=== PATIENT | female | born 1945 | race Caucasian/White ===

== ENCOUNTER 2017-07-26 11:03 | Inpatient (IN) | payer OTHER ==
[2017-07-13 10:23] VITALS: BMI 33.0
--- NOTE | 2017-07-13 11:01 | PAT Medication Instructions ---
Service Date Jul 13, 2017. Current Home Medication List Albuterol Hfa (Ventolin Hfa), 2-4 PUFFS INH Q4H PRN for SOB/Wheezing Hydrochlorothiazide (Hctz), 25 MG PO Q3D Lamotrigine (Lamictal), 100 MG PO QAM Levothyroxine Sodium (Synthroid), 112 MCG PO QAM Nebivolol Hcl (Bystolic), 20 MG PO QAM Omeprazole (Prilosec), 20 MG PO QAM Valsartan (Diovan), 160 MG PO QAM Medication Instructions For Your Scheduled Surgery - Hold the following medications the morning of surgery: Valsartan (Diovan), 160 MG PO QAM Hydrochlorothiazide (Hctz), 25 MG PO Q3D - Take the following medications the morning of surgery with a sip of water: Nebivolol Hcl (Bystolic), 20 MG PO QAM Omeprazole (Prilosec), 20 MG PO QAM Levothyroxine Sodium (Synthroid), 112 MCG PO QAM Lamotrigine (Lamictal), 100 MG PO QAM Albuterol Hfa (Ventolin Hfa), 2-4 PUFFS INH Q4H PRN for SOB/Wheezing (if needed) - Take the following medications as scheduled the night before surgery: Albuterol Hfa (Ventolin Hfa), 2-4 PUFFS INH Q4H PRN for SOB/Wheezing (if needed) If you have any questions please call us at [phone] or [phone] or [phone]
[2017-07-13 11:41] LABS: BASO % 0.3 %; BASO ABS # 0.02 K/uL (0-0.2); COMPLETE YES; EOS % 4.6 %; IG% 0.3 %; LYMPH % 29.1 %; LYMPH ABS # 1.78 K/uL (1.2-3.4); MEAN CELL VOLUME 92.9 fL (80-100); MEAN CORPUSCULAR HEMOGLOBIN 32.3 pg (25-34); MEAN CORPUSCULAR HGB CONC 34.7 g/dl (32-36); MEAN PLATELET VOLUME 9.6 fL (7.4-10.4); MONO % 6.7 %; PLATELET COUNT 270 K/uL (130-400); RED BLOOD COUNT 4.09 M/uL (4.2-5.4); WHITE BLOOD COUNT 6.12 K/uL (4.8-10.8)
[2017-07-13 11:48] LABS: URINE APPEARANCE CLEAR (CLEAR); URINE BILIRUBIN NEG (NEG); URINE COLOR YELLOW; URINE EPITHELIAL CELL AUTO >30 /lpf (0-5); URINE NITRITE NEG (NEG); URINE SPECIFIC GRAVITY 1.019 (1.000-1.030); UROBILINOGEN NEG (NEG); ZZUR CULT IF INDIC CLEAN CATCH NO
[2017-07-13 11:50] LABS: INR 0.9 (0.9-1.1); PROTHROMBIN TIME (PATIENT) 10.1 SECONDS (9.0-12.0)
[2017-07-13 11:56] LABS: BUN/CREATININE RATIO 21.1 (10-20); CREATININE 0.64 mg/dl (0.60-1.20); POTASSIUM 4.8 mmol/L (3.5-5.1)
[2017-07-13 12:06] LABS: MANUAL MICROSCOPIC REQUIRED? NO; REVIEW REQ? NO
[2017-07-13 12:50] LABS: ESTIMATED AVERAGE GLUCOSE 91 mg/dl; HA1C FLAG Normal (Normal)
[~2017-07-26] VITALS: Ht 157.5 cm; Wt 82.0 kg
[2017-07-26] VITALS (9 sets, daily range): BP systolic 101–181; BP diastolic 62–76; PULSE 48–57; TEMP 36.4–36.7; O2SAT 95–98; Ht 157.5 cm; Wt 82.0 kg
[2017-07-26] MEDS: TRANEXAMIC ACID INJ 1,000 MG in SODIUM CHLORIDE 0.9% 100ML 100 ML IV SCH ×2 (06:30→13:39)
--- NOTE | 2017-07-26 08:14 | History & Physical Bridge Note ---
H&P Re-Evaluation Bridge Note: I have examined the patient, reviewed the History & Physical and in the interval since the performance of the History & Physical I have noted the following changes of clinical significance: No changes noted
[~2017-07-26 11:03] MED LIST: ACETAMINOPHEN 500 MG TAB PO SCH; ATROPINE SULFATE 0.1 MG/ML 5ML SYR IV PRN; BUPIVACAINE 0.5 % 5 MG/1 ML PF 10ML VIAL ONE; CEFAZOLIN 2000MG IV PUSH 10 ML IV SCH; CeleBREX 200 MG CAP PO SCH; DEXAMETHASONE 4 MG TAB PO SCH; DVN/160 PO; EpHEDrine SULFATE INJ 50 MG/ML AMP IV PRN; FAMOTIDINE 20 MG TAB PO SCH; GABAPENTIN 300 MG CAP PO SCH; HYDR25TA4 PO; HYDROmorphone INJ 2 MG/ML SYR/VIAL IV PRN; LACTATED RINGER'S 1000ML 1,000 ML IV SCH; LACTATED RINGER'S 1000ML 500 ML IV ONE; LACTATED RINGER'S 1000ML IV SCH; LAMO100T16 PO; LEVO112T2 PO; METOCLOPRAMIDE HCL 10 MG TAB PO SCH; NEBI20TA2 PO; ONDANSETRON INJ 2 MG/ML 2 ML VIAL IV PRN; PHENYLEPHRINE 100MCG/ML 5ML SYR IV PRN; PRLSR20 PO; ROPIVACAINE 0.5% 5 MG/ML 30 ML VIAL ONE; ROPIVACAINE 5MG/ML 30 ML 150 MG, BUPIVACAINE/EPINEPHR 0.5% MPF 30 ML, KETOROLAC TROMETH... INFIL SCH; TRANEXAMIC ACID INJ 1,000 MG in SYRINGE 0 ML IV SCH; VNTHFA/IN INH
--- NOTE | 2017-07-26 11:54 | History and Physical ---
History & Physical Date Jul 26, 2017. 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 for right total knee arthroplasty she's failed attempts at conservative management including physical therapy anti-inflammatories relative rest activity modification History of Present Illness The patient is a 72 year old female with complaints of ongoing right knee pain with severe end-stage Tri-Chlor milligrams joint disease attempts at conservative management including physical therapy anti-inflammatories relative rest activity modification Additional History Hepatic Disease: No Endocrine Disorder: No Kidney Disease: No Hypertension: Yes Heart Disease: Yes Bleeding Tendencies: No Infectious Diseases: No Allergies Coded Allergies: Cabbage (Verified Allergy, Unknown, TOLD THAT SHE WAS ALLERGIC TO, UNSURE OF RXN, 07/26/17) NO KNOWN DRUG ALLERGIES (Verified Allergy, Unknown, NKDA, 07/26/17) Peanut (Verified Allergy, Unknown, TOLD THAT SHE WAS ALLERGIC, UNSURE OF RXN, 07/26/17) Home Medications Scheduled Hydrochlorothiazide (Hctz), 25 MG PO Q3D Lamotrigine (Lamictal), 200 MG PO QAM Levothyroxine Sodium (Synthroid), 112 MCG PO QAM Nebivolol Hcl (Bystolic), 20 MG PO QAM Omeprazole (Prilosec), 20 MG PO QAM Valsartan (Diovan), 160 MG PO QAM Scheduled PRN Albuterol Hfa (Ventolin Hfa), 2-4 PUFFS INH Q4H PRN for SOB/Wheezing Physical Examination Skin: warm/dry, no rash Eyes: normal inspection, EOMI, sclerae normal ENT: normal ENT inspection, pharynx normal Head: normocephalic, atraumatic Neck: supple, no adenopathy, trachea midline Respiratory/Chest: lungs clear, normal breath sounds, no respiratory distress Cardiovascular: regular rate, rhythm, no edema, no murmur Abdomen / GI: normal bowel sounds, non tender Back: normal inspection Extremities: normal inspection, normal range of motion, + pertinent finding ( sevree djd rt knee varus alignment) Neurologic/Psych: no motor/sensory deficits, alert, normal reflexes, oriented x 3 Diagnosis Severe end-stage Tri-Chlor metal degenerative joint disease right knee for right total knee arthroplasty postoperative pain management DVT prophylaxis Plan of Treatment Patient severe end-stage tricompartmental degenerative joint disease presents for a total knee arthroplasty will have postoperative antibiotics pain management DVT prophylaxis physical therapy is necessary.
[2017-07-26] MEDS ORDERED: PRED1SUS3 OPB (12:28)
[2017-07-26] MEDS ORDERED: [UNRECOGNIZED DRUG - OTHER] OPL (12:36)
[2017-07-26] MEDS ORDERED: KETOROLAC OPR (12:37)
[2017-07-26] MEDS ORDERED: MIDAZOLAM HCL 1 MG/ML 2ML VIAL ONE (12:48)
[2017-07-26] MEDS ORDERED: POVIDONE-IODINE OP SOLN 30 ML BTL ONE (13:39)
[2017-07-26] MEDS ORDERED: ORTHO JOINT ANESTHETIC ONE (13:39)
[2017-07-26] MEDS ORDERED: BACITRACIN 50000 UNIT VIAL ONE (13:39)
[2017-07-26] MEDS ORDERED: PROPOFOL IV EMULSION 10 MG/ML 20 ML VIAL IV ONE ×2 (14:31→15:09)
[2017-07-26] MEDS ORDERED: ONDANSETRON INJ 2 MG/ML 2 ML VIAL ONE (14:31)
[2017-07-26] MEDS ORDERED: LIDOCAINE HCL 2% 2 ML VIAL (20MG/ML) ONE (14:31)
--- NOTE | 2017-07-26 15:20 | [facility] Operative Report ---
Operative Report Operative Date Jul 26, 2017. Pre-Operative Diagnosis Severe end-stage tricompartmental degenerative joint disease, right knee. Post-Operative Diagnosis same as preop Procedure(s) Performed Right Total Knee Arthroplasty Surgeon Dr. 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 Right Knee bone and tissue Complication(s) None Disposition Recovery Room / PACU Indications Patient presents with severe end-stage DJD have after after having failed attempts at conservative management including physical therapy anti- inflammatories relative rest activity modification injections viscous supplementations bracing and therapy patient presents for right total knee arthroplasty. Description of Procedure After proper prepping and draping of the Right lower extremity anterior midline incision was made over the region of the extensor extensor mechanism after meticulous hemostasis was obtained and maintained in subcutaneous tissues a medial parapatellar incision was made The patella was subluxed lateralward the medial lateral gutter were cleaned from any hypertrophic synovitis and scar tissue of the distal femoral block was placed and the distal femoral osteotomy cut was made subsequently the chamfers anterior and posterior osteotomy cuts were made utilizing the 4-in-1 block the tibia was subsequently subluxed anteriorward medial and ateral meniscal remnants were excised in their entirety remnants of the anterior and posterior cruciate ligaments were excised in their entirety excellent exposure of the proximal tibia was obtained the tibial osteotomy guide was placed on the proximal tibial osteotomy cut was made once again the knee was irrigated with copious amounts of sterile saline solution the patella was subsequently everted lateralward thickened scar tissue around the patella was removed the patella was subsequently cut utilizing a freehand technique and was drilled prepared for final preparation and placement of patella socially flexion-extension gaps were checked and the equal and symmetric trials were placed to the appropriate femoral and tibial trials with poly-spacer being placed for equal flexion and extension gaps and full range of motion including extension to 0 and flexion to 140 the trial components after having been taken to recovery range of motion was subsequently removed meticulous hemostasis was obtained and maintained subsequently a knee block injection of joint cocktail including ropivacaine 0.5% 150 mg. Bupivacaine 0.5 % epinephrine 1-200,030 mL's toradol 30 mg dexamethasone 4 mg ketamine 10 mg clonidine 100 micrograms normal saline solution 30 mg was infiltrated into the soft tissues of the posterior knee medial lateral gutters and periosteal synovium special attention was paid to protect neurovascular structures at all times subsequently trial components having been removed the knee was irrigated with sterile saline solution. debris was removed the proximal tibia was subsequently prepared and was made ready for the placement of the tibial component tibial component was also cemented and tamped into position the femoral component was subsequently placed and cemented in the position the patellar component was subsequently cemented in position because hemostasis once again obtained and maintained wound having been thoroughly irrigated with debridement and debridement lavage was performed as well as a medial parapatellar incision closed with #1 Vicryl in interrupted fashion subcutaneous was closed with #2 Vicryl skin was closed with skin clips. Dr Hines and SOLOMON were necessary for prepping and drapping as well as wound closure of deep fascia Sub cutaneous tissue and skin and was necessary for the case. A sterile compressive dressing was placed patient was taken to recovery in stable condition of report dictated by Omi I attest to the content of the Intraoperative Record and any orders documented therein. Any exceptions are noted below. I attest to the content of the Intraoperative Record and any orders documented therein. Any exceptions are noted below.
[2017-07-26] MEDS ORDERED: ZOLPIDEM TARTRATE 5 MG TAB PO PRN (15:45)
[2017-07-26] MEDS ORDERED: ALBUTEROL HFA 8 GM INHALER INH PRN (15:45)
[2017-07-26] MEDS ORDERED: CEFAZOLIN IV 2,000 MG in DEXTROSE 5% 50ML 50 ML IV SCH (15:45)
[2017-07-26] MEDS ORDERED: MAGNESIUM HYDROXIDE SUSP 30 ML UDC PO PRN (15:45)
[2017-07-26] MEDS ORDERED: BISACODYL 10 MG SUPP PR PRN (15:45)
[2017-07-26] MEDS ORDERED: SOD PHOSPHATE/SOD BIPHOSPHATE ENEMA 132 ML BTL PR PRN (15:45)
[2017-07-26] MEDS ORDERED: MoRPHine SULFATE 2 MG/ML CARP IV PRN (15:45)
[2017-07-26] MEDS ORDERED: ONDANSETRON INJ 2 MG/ML 2 ML VIAL IV PRN (15:45)
--- NOTE | 2017-07-26 16:10 | DIAGNOSTIC IMAGING REPORT ---
R KNEE 1 OR 2 VIEWS ROUTINE CLINICAL HISTORY: AP/LATERAL IN PACU RIGHT KNEE joint replacement COMPARISON: None. DISCUSSION: Anatomic alignment status post total right knee replacement. Good contact between prosthetic and underlying bone. Surgical drains are in position. Expected soft tissue postoperative change. IMPRESSION: Anatomic alignment status post total right knee replacement. The above report was generated using voice recognition software. It may contain grammatical, syntax or spelling errors. Electronically signed by: Chiki Pearson M.D. 07/26/2017 4:09 PM Dictated Date/Time: 07/26/2017 4:08 PM
--- NOTE | 2017-07-26 16:14 | Anesthesiology Progress Note ---
Anesthesia Post Op Note Date & Time Jul 26, 2017 at 16:14 Vital Signs Pain Intensity: 0 Vital Signs Past 12 Hours Date Time Temp Pulse Resp B/P (MAP) Pulse Ox O2 Delivery O2 Flow Rate FiO2 07/26/17 16:05 56 18 112/58 97 Nasal Cannula 2 07/26/17 15:55 57 15 115/54 98 Nasal Cannula 2 07/26/17 15:45 36.3 60 22 88/44 94 Nasal Cannula 2 07/26/17 11:33 36.5 57 18 181/76 98 Room Air Notes Mental Status: alert / awake / arousable, participated in evaluation Pt Amnestic to Procedure: Yes Nausea / Vomiting: adequately controlled Pain: adequately controlled Airway Patency, RR, SpO2: stable & adequate BP & HR: stable & adequate Hydration State: stable & adequate Anesthetic Complications: no major complications apparent
[2017-07-26] MEDS: SODIUM CHLORIDE 0.9% 1000ML 1,000 ML IV SCH (19:00)
[2017-07-26] MEDS: KETOROLAC TROMETHAMINE 15 MG/ML VIAL IV. SCH ×2 (19:01→23:51)
[2017-07-26] MEDS: ASPIRIN 81 MG ECTAB PO SCH (21:43)
[2017-07-26] MEDS: SENNA 8.6 MG TAB PO SCH (21:43)
[2017-07-26] MEDS: PrednisoLONE ACET 1% OP SUSP 5 ML BTL OPB SCH (21:43)
[2017-07-26] MEDS ORDERED: NURSING VERBAL MED ORDER ONE (21:45)
[2017-07-26] MEDS: ACETAMINOPHEN 500 MG TAB PO SCH (22:59)
[2017-07-26] MEDS: CEFAZOLIN IV 2,000 MG in SYRINGE 0 ML IV SCH (22:59)
[2017-07-27] MEDS: SODIUM CHLORIDE 0.9% 1000ML 1,000 ML IV SCH ×2 (01:39→11:13)
[2017-07-27] MEDS: TRAMADOL HCL 50 MG TAB PO PRN ×4 (01:40→19:14)
[2017-07-27 03:00] VITALS: BP 110/66; PULSE 51; TEMP 36.6; O2SAT 93
[2017-07-27] MEDS: KETOROLAC TROMETHAMINE 15 MG/ML VIAL IV. SCH ×2 (05:19→11:38)
[2017-07-27] MEDS: CEFAZOLIN IV 2,000 MG in SYRINGE 0 ML IV SCH (05:20)
[2017-07-27] MEDS: ACETAMINOPHEN 500 MG TAB PO SCH ×3 (05:22→21:25)
[2017-07-27] MEDS: LEVOTHYROXINE 112 MCG TAB PO SCH (05:23)
[2017-07-27 06:58] VITALS: BP 114/69; PULSE 49; TEMP 36.5; O2SAT 91
[2017-07-27] MEDS ORDERED: DEXAMETHASONE 4 MG TAB PO ONE (07:30)
[2017-07-27] MEDS: KETOROLAC 0.5% OP SOLN 3 ML BTL OPL SCH (07:50)
[2017-07-27] MEDS: PrednisoLONE ACET 1% OP SUSP 5 ML BTL OPB SCH ×3 (07:50→21:21)
--- NOTE | 2017-07-27 07:52 | Orthopedic Progress Note ---
Orthopedic Progress Note Date of Service Jul 27, 2017. Subjective Post OP Day: 1 Reports: feeling well, Denies: complaints Additional Notes: Pt doing very well this AM. Ambulating from the BR with walker without difficulty. Pain controlled. Objective calves soft nontender, N/V intact, dressing C/D/I, A&O x3, toes mobile, hemovac drainage (30ml latest shift) Date Time Temp Pulse Resp B/P (MAP) Pulse Ox O2 Delivery O2 Flow Rate FiO2 07/27/17 07:10 Room Air 07/27/17 06:58 36.5 49 17 114/69 (84) 91 Room Air 07/27/17 03:00 36.6 51 18 110/66 (81) 93 Room Air 07/26/17 23:45 Nasal Cannula 2.0 07/26/17 23:12 36.7 53 16 101/67 (78) 96 Nasal Cannula 2.0 07/26/17 19:30 36.5 48 18 114/70 (85) 97 Nasal Cannula 2.0 07/26/17 18:30 36.4 57 18 120/74 (89) 95 Nasal Cannula 2.0 07/26/17 17:30 36.7 49 16 116/73 (87) 98 Nasal Cannula 2.0 07/26/17 17:00 36.7 52 18 115/62 (79) 98 Nasal Cannula 2.0 07/26/17 16:46 97 Nasal Cannula 2.0 07/26/17 16:39 36.5 52 16 103/62 97 Room Air 2.0 07/26/17 16:30 36.5 52 16 103/62 (76) 97 Nasal Cannula 2.0 07/26/17 16:15 37.2 57 15 119/63 96 Nasal Cannula 2 07/26/17 16:05 56 18 112/58 97 Nasal Cannula 2 07/26/17 15:55 57 15 115/54 98 Nasal Cannula 2 07/26/17 15:45 36.3 60 22 88/44 94 Nasal Cannula 2 07/26/17 14:30 Room Air 07/26/17 11:33 36.5 57 18 181/76 98 Room Air Laboratory Results 24 Hours: Test 07/27/17 04:44 Additional Notes: Labs pending Assessment & Plan Assessment: POD 1 s/p Right TKA Plan: PT/OT Planning for service upon DC Inhouse Planning Pain Management: Celebrex, Toradol, Ultram, Morphine, PO Tylenol, Oxy IR DVT Prophylaxis: TEDs, SCDs, ASA Discharge Planning Discharge Planning: home with home health
[2017-07-27 08:13] LABS: HEMATOCRIT 35.5 % (37-47); MEAN CELL VOLUME 92.2 fL (80-100); MEAN CORPUSCULAR HEMOGLOBIN 30.9 pg (25-34); MEAN CORPUSCULAR HGB CONC 33.5 g/dl (32-36); MEAN PLATELET VOLUME 9.7 fL (7.4-10.4); PLATELET COUNT 271 K/uL (130-400); RED BLOOD COUNT 3.85 M/uL (4.2-5.4); WHITE BLOOD COUNT 15.52 K/uL (4.8-10.8)
[2017-07-27 08:32] LABS: CALCIUM 8.6 mg/dl (8.5-10.1); CREATININE 0.77 mg/dl (0.60-1.20); POTASSIUM 4.3 mmol/L (3.5-5.1)
[2017-07-27] MEDS: NEBIVOLOL HCL 5 MG TAB PO SCH (08:34)
[2017-07-27] MEDS: VALSARTAN 80 MG TAB PO SCH (08:35)
[2017-07-27] MEDS: ASPIRIN 81 MG ECTAB PO SCH ×2 (08:35→21:24)
[2017-07-27] MEDS: MULTIVITAMIN TAB PO SCH (08:36)
[2017-07-27] MEDS: PANTOprazole SOD 40 MG TAB PO SCH (08:36)
--- NOTE | 2017-07-27 08:45 | Discharge Instructions ---
Discharge Instructions Date of Service Jul 27, 2017. Admission Reason for Admission: Right Knee Osteoarthritis Discharge Discharge Diagnosis / Problem: Right Knee Djd Discharge Goals Goal(s): Decrease discomfort, Improve function Activity Recommendations Activity Limitations: per Instructions/Follow-up section Weightbearing Status: Right weightbearing (as tolerated) . Instructions / Follow-Up Instructions / Follow-Up ACTIVITY RECOMMENDATIONS: SELF CARE INSTRUCTIONS AFTER TOTAL KNEE REPLACEMENT A. You may need to continue a physical therapy program after discharge from the hospital. There are several options available to you. Your doctor will assist you in selecting the best one for you. 1. An out-patient facility 2 to 3 times a week for therapy or home therapy. 2. Continue working on all exercises taught to you in the hospital. Your goals should be to increase bending of your knee to 90 degrees and beyond and to fully straighten your knee. B. You may progress at your own pace from walking with a walker or crutches to a cane; then to no assistive devices. C. Make walking a part of your daily routine. Be up as much as comfortable with rest periods throughout the day. Rest with leg elevation is very important. Use the ice wrap frequently for the first 3-4 weeks. D. There are no restrictions on activities. You may ride in a car, shop, participate in dot compliance manager and all social activities. E. Wear the long elastic stockings (NAKITA hose) 20 hours a day for 2 weeks after surgery. They can be removed several times a day for laundering and for a bath. F. You may shower, no tub baths until cleared by your doctor. SPECIAL CARE INSTRUCTIONS: VERY IMPORTANT TO READ AND REVIEW A. There are a few signs you need to watch for after you are home. Call [facility] if you notice any of the followin. Increased severe knee pain. Some pain is expected especially when you exercise. 2. Increased swelling in your leg or knee; pain or swelling of the calf muscle in either lower leg. 3. Any fluid drainage from the incision. 4. Shortness of breath or chest pain. B. Please call [facility] at if you have any concerns or questions about your operation or recovery. The doctor or his nurse will return your call promptly. C. You must take antibiotics before dental work, bladder, bowel or other surgery. Your doctor will provide you with a permanent care to carry describing this precaution. IMPORTANT: * REMEMBER TO TAKE ASPIRIN, 81 MG, TWICE DAILY FOR 4 WEEKS UNLESS OTHERWISE DIRECTED. THIS IS YOUR BLOOD THINNER. * HIGH RISK PATIENTS MAY BE PRESCRIBED A STRONGER BLOOD THINNER. THIS WILL BE PROVIDED AT DISCHARGE. * CALL IF INCREASED PAIN, REDNESS, DRAINAGE OR FEVER GREATER THAT 101. * WEAR NAKITA HOSE 20 HOURS PER DAY FOR 2 WEEKS. * DERMABOND Prineo- This is a mesh tape dressing that is covered with glue. It should remain in place until the incision is properly healed, usually 10-14 days. This dressing is designed to naturally slough off. You may trim the excess mesh tape as it peels off. Incision may be briefly wet in a shower. Dry immediately by blotting with a clean, dry towel. Do not bath or swim until instructed by your doctor. Do not scratch, rub, or pick at the dressing. Do not apply any topical ointments or lotions until dressing is completely removed and/or instructed by your doctor. There may be a small piece of suture material at one end of your incision. Do not pull or trim this. If it is bothersome or catching on clothing, you may cover it with a band-aid. FOLLOW UP VISIT: If appointment is not already scheduled: Please call [facility] to make a follow-up appointment for 2 weeks after your surgery at . Current Hospital Diet Patient's current hospital diet: Regular Diet Discharge Diet Recommended Diet: Regular Diet Procedures Procedures Performed: Right Total Knee Arthroplasty Pending Studies Studies pending at discharge: no Laboratory Results Hemoglobin A1c Test 07/13/17 11:19 Range/Units Estimated Average Glucose 91 mg/dl Hemoglobin A1c 4.8 4.5-5.6 % Medical Emergencies . Who to Call and When: Medical Emergencies: If at any time you feel your situation is an emergency, please call 911 immediately. . Non-Emergent Contact Non-Emergency issues call your: Surgeon Call Non-Emergent contact if: temperature is above 101.5, your pain is not controlled, your pain is worsening, wound has increased drainage, wound has increased redness . "Provider Documentation" section prepared by Arjun Todd. . VTE Core Measure Inpt VTE Proph given/why not?: Other Anticoagulation, T.E.D. Stockings, SCD's [place] Drug Monitoring Program Search Results: patient reviewed within database, no issues identified
[2017-07-27] MEDS ORDERED: HYDROCHLOROTHIAZIDE 25 MG TAB PO SCH (09:00)
[2017-07-27] MEDS ORDERED: KETOROLAC 0.5% OP SOLN 3 ML BTL OPL SCH (09:00)
[2017-07-27 11:40] VITALS: BP 195/68; PULSE 54; TEMP 36.3; O2SAT 97
--- NOTE | 2017-07-27 14:16 | Anesthesiology Progress Note ---
Anesthesia Post Op Note Date & Time Jul 27, 2017 at 14:14 Vital Signs Vital Signs Past 12 Hours Date Time Temp Pulse Resp B/P (MAP) Pulse Ox O2 Delivery O2 Flow Rate FiO2 07/27/17 11:40 36.3 54 16 195/68 (110) 97 Room Air 07/27/17 07:10 Room Air 07/27/17 06:58 36.5 49 17 114/69 (84) 91 Room Air 07/27/17 03:00 36.6 51 18 110/66 (81) 93 Room Air Notes Mental Status: alert / awake / arousable, participated in evaluation Pt Amnestic to Procedure: Yes Nausea / Vomiting: adequately controlled Pain: adequately controlled Airway Patency, RR, SpO2: stable & adequate BP & HR: stable & adequate Hydration State: stable & adequate Neuraxial Anesthesia: sensory block resolved Anesthetic Complications: no major complications apparent
[2017-07-27 15:00] VITALS: BP 177/72; PULSE 53; O2SAT 93
[2017-07-27] MEDS: CeleBREX 200 MG CAP PO SCH (21:21)
[2017-07-27] MEDS: SENNA 8.6 MG TAB PO SCH (21:24)
[2017-07-27] MEDS: OXYCODONE HCL IR 5 MG TAB (IMMEDIATE RELEASE) PO PRN (23:09)
[2017-07-27 23:19] VITALS: BP 132/79; PULSE 54; TEMP 36.6; O2SAT 96
[2017-07-28] MEDS: OXYCODONE HCL IR 5 MG TAB (IMMEDIATE RELEASE) PO PRN ×2 (03:18→08:11)
[2017-07-28] MEDS: LEVOTHYROXINE 112 MCG TAB PO SCH (05:58)
[2017-07-28] MEDS: ACETAMINOPHEN 500 MG TAB PO SCH (05:58)
[2017-07-28 06:09] VITALS: BP 150/78; PULSE 50; TEMP 36.5; O2SAT 98
[2017-07-28 07:30] VITALS: O2SAT 98
--- NOTE | 2017-07-28 08:20 | Orthopedic Progress Note ---
Orthopedic Progress Note Date of Service Jul 28, 2017. Subjective Post OP Day: 2 Reports: feeling well, Denies: chest pain, SOB, nausea / vomiting, light headedness, calf pain Objective calves soft nontender, N/V intact, dressing C/D/I (SILVERLON), A&O x3, toes mobile Date Time Temp Pulse Resp B/P (MAP) Pulse Ox O2 Delivery O2 Flow Rate FiO2 07/28/17 06:09 36.5 50 16 150/78 (102) 98 Room Air 07/27/17 23:19 36.6 54 16 132/79 (96) 96 Room Air 07/27/17 23:15 Room Air 07/27/17 15:26 Room Air 07/27/17 15:00 53 20 177/72 (107) 93 Room Air 07/27/17 11:40 36.3 54 16 195/68 (110) 97 Room Air Assessment & Plan Assessment: POD 2 s/p Right TKA Plan: PT/OT Planning for service upon DC, DC HOME TODAY Inhouse Planning Pain Management: Celebrex, Toradol, Ultram, Morphine, PO Tylenol, Oxy IR DVT Prophylaxis: TEDs, SCDs, ASA Discharge Planning Discharge Planning: home with home health
[2017-07-28] MEDS ORDERED: SNK PO (08:23)
[2017-07-28] MEDS ORDERED: ACET-24 PO (08:23)
[2017-07-28] MEDS ORDERED: ASPEC81 PO (08:23)
[2017-07-28] MEDS ORDERED: CLB200 PO (08:23)
[2017-07-28] MEDS ORDERED: RXC5 PO (08:23)
[2017-07-28] MEDS ORDERED: ONDA8TAB6 PO (08:23)
[2017-07-28] MEDS: MULTIVITAMIN TAB PO SCH (09:00)
[2017-07-28] MEDS: KETOROLAC 0.5% OP SOLN 3 ML BTL OPL SCH (09:12)
[2017-07-28] MEDS: PrednisoLONE ACET 1% OP SUSP 5 ML BTL OPB SCH (09:12)
[2017-07-28] MEDS: PANTOprazole SOD 40 MG TAB PO SCH (09:13)
[2017-07-28] MEDS: ASPIRIN 81 MG ECTAB PO SCH (09:13)
[2017-07-28] MEDS: CeleBREX 200 MG CAP PO SCH (09:14)
[2017-07-28] MEDS: VALSARTAN 80 MG TAB PO SCH (10:08)
[2017-07-28] MEDS: NEBIVOLOL HCL 5 MG TAB PO SCH (10:08)
[2017-07-28 10:30] VITALS: BP 150/78; PULSE 50; TEMP 36.5; O2SAT 98
--- NOTE | 2017-07-30 08:06 | DISCHARGE SUMMARY ---
DISCHARGE DIAGNOSIS: Degenerative joint disease, right knee. SECONDARY DIAGNOSIS: None. CONSULTS: None. COMPLICATIONS: None. PROCEDURE: The patient underwent a right total knee arthroplasty with Dr. Braga on 07/26/2017. BRIEF HISTORY: Please see previously dictated history and physical. HOSPITAL SUMMARY: The patient was admitted on the above day for the above procedure. Procedure went without complication. Postop day 1, the patient was feeling well without complaints. She denied chest pain or shortness of breath. Vital signs were stable. She was afebrile. Dressing was clean, dry and intact. She was neurovascularly intact. Calves were soft and nontender. Hemovac drained 30 mL last shift. Postop day 2, the patient continued to improve. She denied chest pain or shortness of breath. Vital signs were stable. She was afebrile. Silverlon dressing was clean, dry and intact. She was neurovascularly intact. Calves were soft and nontender. The patient was discharged home later that day in stable condition. For further review please see the chart. Lab, x-ray data and discharge instructions as per chart.
== END 2017-07-28 11:15 | disposition home health service (06) | DRG 470 ==
LOC: C.ACU 11:03 → C.3E 11:15 → ENRESERV 16:17
PROVIDERS: ADMIT Orthopaedic Surgery; ATTEND Orthopaedic Surgery
PROC: 0SRC0J9 Replacement of Right Knee Joint with Synthetic Substitute, Cemented, Open Approach (ICD-10-PCS; principal; 2017-07-26 14:30)
DX: M17.11 Unilateral primary osteoarthritis, right knee (principal); I10 Essential (primary) hypertension; I25.10 Atherosclerotic heart disease of native coronary artery without angina pectoris